=== PATIENT | male | born 1965 ===

== ENCOUNTER 2024-04-11 07:34 | Outpatient (REF) | payer OTHER, SELFPAY ==
--- NOTE | ~2024-04-11 | XR_ITS ---
EXAMINATION: XR SHOULDER, LEFT CLINICAL INFORMATION: Pain in left shoulder COMPARISON: None available. TECHNIQUE: AP neutral, scapular Y, and axillary views of the left shoulder. FINDINGS: The bones are intact. No fracture. Glenohumeral and acromioclavicular alignment is anatomic with normal glenohumeral joint space. Mild degenerative change of the acromioclavicular joint. No abnormal soft tissue calcifications. XR/XR shoulder LT min 2V IMPRESSION: Mild degenerative change of the acromioclavicular joint.
== END 2024-04-11 07:35 | disposition home or self-care (01) ==
LOC: HO.HOSX 07:34
PROVIDERS: Visit Provider Physician Assistant
DX: M75.102 Unspecified rotator cuff tear or rupture of left shoulder, not specified as traumatic (principal)
CPT/HCPCS: 73030; 99202

== ENCOUNTER 2024-04-11 10:26 | Outpatient (AMB) | payer OTHER, SELFPAY ==
--- NOTE | 2024-04-11 10:29 | A.OFFVIS_ITS ---
Vital Signs 04/11/24 10:39 Height 5 ft 3 in Weight 180 lb BMI 31.9 Intake Visit Reasons: New Pt - Left Shoulder - ?Bicep tear 03/19/24 Intake Note: Juan Manuel a 58 year old right hand dominant male who presents today as a new patient for an evaluation of left shoulder, DOI 03/19/24. Patient reports he moving objects when he felt a crack. He presented to [facility] ER same day and was referred to orthopedics. He states a week after his initial injury he was moving boxes when he felt his muscle . He had swelling and a bulge in his bicep area and presented back to [facility] ER. Currently he has pain and tightness with certain movements. Allergies No Known Allergies Allergy (Verified 04/11/24 10:39) Medication List - Last Reconciled 04/11/24 by Jessica Bansal PA-C aspirin 81 mg PO DAILY atorvastatin 40 mg PO DAILY empagliflozin (Jardiance) 25 mg PO DAILY glipizide ER 5 mg PO DAILY liraglutide (Victoza 3-Pradip) 1.2 mg subcut DAILY lisinopril 5 mg PO DAILY metformin 1,000 mg PO BID terbinafine HCl 250 mg PO DAILY HPI HPI New Pt - Left Shoulder - ?Bicep tear 03/19/24: Details: 58-year-old right hand dominant male who presents to the office today for evaluation of left shoulder injury while moving objects when he felt a crack, 03/19/24. He was seen at [facility] ER the same day where he was referred to our office. He also reports a week after his initial injury he was moving down when he felt his muscle where he had swelling and a bulge in his bicep area and was seen back at [facility] ER. He currently states he has pain and tightness in his shoulder with certain movements. [facility] Social History (Updated 04/11/24 @ 10:41 by MIN Connor) Patient Tobacco Use Status: Never used Tobacco Current occupational status: unemployed Current occupation: right hand dominant Review of Systems Const All systems reviewed & are unremarkable except as noted in HPI and below Physical Exam Vital Signs: BMI result Body Mass Index 31.9 Const General: cooperative, healthy appearing, comfortable, no acute distress, well developed and alert Orientation/consciousness: patient oriented x3 HEENT Head: Yes normal to inspection, Yes normocephalic and Yes atraumatic Eyes General: appearance normal, both eyes and all related structures Resp Effort & Inspection: normal respiratory effort and able to speak in complete sentences Cardio Rate: regular rate Peripheral pulses: Peripheral pulses 2+ throughout GI Palpation (GI): Soft to palpation Skin Lesions: no lesions Rashes: no rashes Neuro General: patient oriented x3 Extrem Other: Left shoulder normal to inspection. Tenderness over the bicipital groove and along the deltoid region of the shoulder. Forward flexion to 175, external rotation to 90, internal rotation to S1. Pain and weakness with RTC strength testing. Negative Escobar and cross body abduction. NVI. Results Reviewed Results Reviewed: Xrays were obtained in the office today and personally reviewed by me of the left shoulder show mild ac joint oa Assessment & Plan Assessment & Plan (1) Rotator cuff tear, left: Code(s): M75.102 - Unspecified rotator cuff tear or rupture of left shoulder, not specified as traumatic Category: Medical Plan An MRI of the left shoulder was ordered to further evaluate the extent of the RTC. An order for physical therapy was also placed to work on ROM and periscapular stabilization ____. I will contact him once the MRI is complete. Orders: Orders XR shoulder LT min 2V Today M25.512 - Pain in left shoulder MR shoulder LT wo con Today S46.009A - Unspecified injury of muscle(s) and tendon(s) of the rotator cuff of unspecified shoulder, initial encounter PT Evaluation and Treatment Today M75.102 - Unspecified rotator cuff tear or rupture of left shoulder, not specified as traumatic Patient Instructions: Scribed for Jessica Bansal PA-C, by Mark Tucker medical clerical assistant, on 04/11/2024 at 10:30 AM EST.? I, Jessica Bansal PA-C, have personally reviewed and agree with the information entered by the scribe. Coding Level of Care Code New Pt Level 3 (13089) Diagnoses Rotator cuff tear, left M75.102
[2024-04-11 10:39] VITALS: BMI 31.9
== END 2024-04-11 13:19 | disposition home or self-care (01) ==
PROVIDERS: Visit Provider Physician Assistant
DX: M75.102 Unspecified rotator cuff tear or rupture of left shoulder, not specified as traumatic (principal)
CPT/HCPCS: 99203

== ENCOUNTER 2024-05-24 07:09 | Outpatient (REF) | payer OTHER, SELFPAY ==
--- NOTE | ~2024-05-24 | MR_ITS ---
EXAMINATION: MR SHOULDER WITHOUT CONTRAST, LEFT CLINICAL INFORMATION: Left shoulder pain. COMPARISON: Left shoulder radiographs dated 04/11/2024. TECHNIQUE: MRI of the shoulder without contrast was performed on a high-field scanner. FINDINGS: ROTATOR CUFF: Moderate supraspinatus and infraspinatus tendinosis. Insertional intrasubstance partial tearing of the posterior supraspinatus tendon and junctional fibers measuring approximately 1.3 x 1.1 cm (AP x ML). Possible thin extension to the bursal surface. Moderate subscapularis tendinosis with distal articular surface partial tearing measuring up to 3.4 cm in ML dimension. No muscle atrophy or fatty infiltration. BICEPS: Complete, full-thickness tear of the proximal long head biceps tendon with retraction to the level of the humeral neck. CORACOACROMIAL ARCH: There is a type B os acromiale with mild degenerative change. The undersurface of the acromion is minimally curved with small subacromial spurs. Moderate acromioclavicular osteoarthritis. Fluid and edema within the subacromial subdeltoid bursa, consistent with mild bursitis. LABRUM/CAPSULE: Intermediate, somewhat linear T2 signal within the undersurface of the superior labrum, likely indicating a nondisplaced undersurface tear. Attenuation and fraying through the posterosuperior labrum. Intact inferior joint capsule. GLENOHUMERAL JOINT/MARROW: Intact articular cartilage. No acute osseous injury. MR/MR shoulder LT wo con IMPRESSION: 1. Moderate supraspinatus and infraspinatus tendinosis with insertional intrasubstance partial tearing of the posterior supraspinatus tendon and junctional fibers measuring 1.3 x 1.1 cm (AP x ML). Possible thin extension to the bursal surface. Moderate subscapularis tendinosis with distal articular surface partial tearing measuring 3.4 cm in ML dimension. 2. Complete, full-thickness tear of the proximal long head biceps tendon with retraction to the level of the humeral neck. 3. 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 Moderate acromioclavicular osteoarthritis with small subacromial spurs. 4. Mild subacromial subdeltoid bursitis. 5. Probable nondisplaced undersurface tear of the superior labrum. Attenuation and fraying through the posterosuperior labrum.
== END 2024-05-24 07:10 | disposition home or self-care (01) ==
LOC: HO.MRI 07:09
PROVIDERS: Visit Provider Physician Assistant
DX: S46.002A Unspecified injury of muscle(s) and tendon(s) of the rotator cuff of left shoulder, initial encounter (principal)
CPT/HCPCS: 73221

== ENCOUNTER 2024-05-26 12:00 | Outpatient (RCR) | payer OTHER, SELFPAY ==
--- NOTE | 2024-05-02 10:56 | MHC.PT.EP ---
[facility] [place] Office [place] Office [place] Office [address] Stef Dobbins [address] [phone] F: [phone] F: [phone] F: [phone] F: [phone] Physical Therapy Plan of Care Date of Evaluation: 05/02/24 Date of Surgery: N/A Diagnosis: unspecified RTC or rupture of left shoulder (RL) Assessment: pt is a 58 y/o male presenting to physical therapy w/ referring diagnosis of unspecified RTC or rupture of left shoulder. Given OLAYINKA and signs/symptoms I am more suspicious of biceps tear vs. muscle strain. He is scheduled for an MRI on 05/24/24. Impairments include pain, decreased range of motion, decreased strength, impaired functional mobility, impaired postural awareness, and altered ambulation mechanics. pt is a good candidate for skilled PT due to age, potential remediation of impairments, typical disease/condition progression and prognosis, comorbidities, and motivation. pt would benefit from skilled PT intervention to provide a tailored strengthening and stretching exercise program, functional training, gait training, postural re-training, neuromuscular re-education, modalities as needed for pain, equipment safety demonstration. Frequency and Duration: The patient will be seen 2x/wk for 4 wks Short Term Goals: pt will be I w/ HEP to promote self-management of condition. pt will improve L shoulder abduction by at least 10 degrees to promote ease in overhead reaching. Cafeteria Assistant Goals: pt will report a statistically significant improvement in self-reported outcome measure, SPADI, to promote return to PLOF. 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 Treatment Plan: Modalities to reduce pain, spasms and effusion. Manual therapy to restore motion and function. Therapeutic exercise to improve strength and flexibility. Neuromuscular re-education for posture and balance. Therapeutic activities to return to functional activities of daily living. Electronically signed by: Kiley Mario PT, DPT Please sign and return to therapist. Thank you for your referral.
--- NOTE | 2024-06-21 15:56 | MHC.PT.DC ---
[facility] [place] Office [place] Office [place] Office [address] Stef Dobbins [address] [facility] [phone] F: [phone] F: [phone] F: [phone] F: [phone] Physical Therapy Discharge Report Diagnosis: unspecified RTC or rupture of left shoulder (RL) Date of Surgery: N/A Date of Evaluation: 05/02/24 Date of Discharge: 06/21/24 Treatments to Date: 7 Cancellations to Date: 0 No Shows to Date: 2 Discharge Status: Visit Non-compliance Discharge Summary: The patient overall was reporting no change in his symptoms with physical therapy. He was participating in AROM, stretching, strengthening, activities to promote efficient scapulohumeral rhythm without improvement. He received an MRI which was indicative of long head biceps full thickness tear. He no showed his last two appointments and has not called to reschedule. He is discharged at this time due to non-compliance. Electronically signed by: Kiley Mario PT, DPT Please sign and return to therapist. Thank you for your referral.
== END 2024-06-21 15:56 | disposition home or self-care (01) ==
LOC: HO.PT 12:00
PROVIDERS: Visit Provider Physician Assistant
DX: M75.102 Unspecified rotator cuff tear or rupture of left shoulder, not specified as traumatic (principal)
CPT/HCPCS: 97110; 97162; 97530

== ENCOUNTER 2024-06-09 14:16 | Outpatient (AMB) | payer OTHER, SELFPAY ==
--- NOTE | 2024-06-09 14:51 | A.OFFVIS_ITS ---
Intake Visit Reasons: OV- left shoulder MRI review per TM Intake Note: Juan Manuel is a 59 year old right hand dominant male who presents today for an MRI review of the Left Shoulder. On 03/19/24 the patient was moving boxes when he felt a crack in the shoulder and felt like his muscles . Allergies No Known Allergies Allergy (Verified 04/11/24 10:39) HPI HPI OV- left shoulder MRI review per TM: Details: Juan Manuel is a 59 year old right hand dominant male who presents today for an MRI review of the Left Shoulder. On 03/19/24 the patient was moving boxes when he felt a crack in the shoulder and felt like his muscles . ON LICENSE OF [facility] Social History (Updated 04/11/24 @ 10:41 by Luzma Tovar Sonido) Patient Tobacco Use Status: Never used Tobacco Current occupational status: unemployed Current occupation: right hand dominant Physical Exam Const General: cooperative, healthy appearing, no acute distress and well groomed Orientation/consciousness: oriented to person and oriented to place HEENT Head: Yes normal to inspection, Yes normocephalic and Yes atraumatic Eyes General: appearance normal, both eyes and all related structures Alignment and Position: alignment normal Conjunctivae: conjunctivae normal EOM: EOMs intact bilaterally Neck Neck: Yes normal visual inspection and Yes trachea midline Resp Other: No rerpiratory distress Effort & Inspection: normal respiratory effort and able to speak in complete sentences Cardio Other: Palpable radial pulse with no appreciable rythmic abnormalities GI Other: No abdominal distension Back/Spine/Pelvis Cervical Spine: normal cervical lordosis and cervical ROM normal Skin General skin exam: no rashes or lesions noted Neuro General: oriented to person, oriented to place and gait normal Extrem Other: poor shoulder mechanics with scapular recruitment on abduction + Escobar and Neer Neg but painful EC Results Reviewed Results Reviewed: 1. Moderate supraspinatus and infraspinatus tendinosis with insertional intrasubstance partial tearing of the posterior supraspinatus tendon and junctional fibers measuring 1.3 x 1.1 cm (AP x ML). Possible thin extension to the bursal surface. Moderate subscapularis tendinosis with distal articular surface partial tearing measuring 3.4 cm in ML dimension. 2. Complete, full-thickness tear of the proximal long head biceps tendon with retraction to the level of the humeral neck. 3. 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 Moderate acromioclavicular osteoarthritis with small subacromial spurs. 4. Mild subacromial subdeltoid bursitis. 5. Probable nondisplaced undersurface tear of the superior labrum. Attenuation and fraying through the posterosuperior labrum. Assessment & Plan Assessment & Plan (1) Rotator cuff tear, left: Code(s): M75.102 - Unspecified rotator cuff tear or rupture of left shoulder, not sp ecified as traumatic Category: Medical Plan: Left RTC partial thickness tearing. Not interested in surgery but I think he would benefit. I injected his left shoulder and recommend continued PT. Coding Level of Care Code Est Pt Level 4 (08826) Diagnoses Rotator cuff tear, left M75.102
== END 2024-06-09 15:19 | disposition home or self-care (01) ==
PROVIDERS: Visit Provider Orthopaedic Surgery
DX: M75.102 Unspecified rotator cuff tear or rupture of left shoulder, not specified as traumatic (principal)
CPT/HCPCS: 20610; 99214

== ENCOUNTER → 2024-06-09 14:16 | Outpatient (BNVA) | payer OTHER, SELFPAY | PROVIDERS: Visit Provider Orthopaedic Surgery | DX: M75.102 Unspecified rotator cuff tear or rupture of left shoulder, not specified as traumatic (principal) | CPT/HCPCS: 20610; 99212; J0665; J1100 ==